=== PATIENT | female | born 1985 | race African-American/Black ===

== ENCOUNTER 2017-09-06 10:26 | Emergency (ER) | payer MEDICAID ==
[~2017-09-06] VITALS: Ht 165.1 cm; Wt 74.8 kg
[~2017-09-06 10:26] MED LIST: IBUPROFEN600 MG ORAL; IMITREX50 MG ORAL; ZOFRAN ODT4 MG ORAL
[2017-09-06 10:39] VITALS: BP 165/107
[2017-09-06] MEDS ORDERED: NKM (10:39)
[2017-09-06] MEDS ORDERED: Haloperidol 5mg/ml Inj IM ONE (11:30)
[2017-09-06 12:02] LABS: ANION GAP 14 mmol/L (5-15); CALCIUM 9.5 MG/DL (8.5-10.1); CARBON DIOXIDE 24 MMOL/L (21-32); CHLORIDE 100 MMOL/L (98-107); CREATININE 0.7 MG/DL (0.55-1.30); GLOMERULAR FILTRATION RATE > 60 mL/min (>60); INR 1.1 (0.9-1.1); MEAN CORPUSCULAR HEMOGLOBIN 32.6 PG (27.0-31.0); MEAN CORPUSCULAR HGB CONC 34.8 G/DL (32.0-36.0); MEAN CORPUSCULAR VOLUME 94 FL (80-99); MEAN PLATELET VOLUME 6.3 FL (6.5-10.1); PLATELET COUNT 330 K/UL (150-450); POTASSIUM 2.9 MMOL/L (3.5-5.1); PROTHROMBIN TIME 11.6 SEC (9.30-11.50); RED BLOOD COUNT 4.48 M/UL (4.20-5.40); RED CELL DISTRIBUTION WIDTH 11.1 % (11.6-14.8); SODIUM 138 MMOL/L (136-145); WHITE BLOOD COUNT 10.9 K/UL (4.8-10.8)
[2017-09-06 12:10] LABS: ALANINE AMINOTRANSFERASE 20 U/L (12-78); ALBUMIN/GLOBULIN RATIO 1.1 (1.0-2.7); APPEARANCE,URINE SLIGHTLY CLOUDY; ASPARTATE AMINO TRANSFERASE 17 U/L (15-37); KETONES,URINE 4+ (NEGATIVE); LEUKOCYTE ESTERASE ,URINE 2+ (NEGATIVE); LIPASE 122 U/L (73-393); NITRITE,URINE NEGATIVE (NEGATIVE); PH,URINE 6 (4.5-8.0); PROTEIN,URINE 2+ (NEGATIVE); TOTAL PROTEIN 8.6 G/DL (6.4-8.2); UROBILINOGEN,URINE NORMAL MG/DL (0.0-1.0)
[2017-09-06 12:55] LABS: BACTERIA,URINE FEW /HPF; RBC,URINE TNTC /HPF (0 - 2); SQUAMOUS EPITHELIAL CELL,UR MANY /LPF (NONE/OCC)
[2017-09-06 12:56] LABS: MUCUS,URINE MANY /LPF (NONE/OCC)
[2017-09-06 13:00] LABS: BAND NEUTROPHILS % (MANUAL) 0 % (0-8); BASOPHILS % (MANUAL) 0 % (0-2); EOSINOPHILS % (MANUAL) 0 % (0-3); LYMPHOCYTES % (MANUAL) 6 % (20-45); NEUTROPHILS % (MANUAL) 89 % (45-75); PLATELET ESTIMATE ADEQUATE; PLATELET MORPHOLOGY NORMAL; TOTAL CELLS COUNTED 100
[2017-09-06] MEDS ORDERED: cefTRIAXone 1 GM in NS 55 ML IVPB ONE (13:00)
[2017-09-06] MEDS ORDERED: ZOFRAN4 M3 ORAL (13:23)
[2017-09-06 14:01] VITALS: BP 119/67
[2017-09-06 14:37] VITALS: BP 119/67
--- NOTE | 2017-09-06 19:27 | Emergency Room Report ---
History of Present Illness General Chief Complaint: Vomiting Source: Patient Present Illness HPI Patient 31-year-old female presented after increased epigastric pain and vomiting. Patient gradual onset of symptoms. Patient had prior history of gastritis. She reports smoking marijuana earlier in the day. This reportedly helped pain. The patient having crampy pain. Associated with some burning sensation epigastric area. Allergies: Uncoded Allergies: CHOCOLATE (Allergy, Unknown, 09/06/17) Patient History Past Medical History: see triage record Last Menstrual Period: on period Reviewed Nursing Documentation: PMH: Agreed, PSxH: Agreed Nursing Documentation-PMH Past Medical History: No History, Except For Hx Gastrointestinal Problems: Yes - IBS Review of Systems All Other Systems: negative except mentioned in HPI Physical Exam Vital Signs Date Time Temp Pulse Resp B/P (MAP) Pulse Ox O2 Delivery O2 Flow Rate FiO2 09/06/17 10:31 98.2 105 18 152/97 99 Room Air Sp02 EP Interpretation: reviewed, normal General Appearance: normal inspection, well appearing, no apparent distress, alert, GCS 15 Head: atraumatic ENT: normal ENT inspection, hearing grossly normal, normal voice Neck: normal inspection, full range of motion, supple, no bony tend Respiratory: normal inspection, lungs clear, normal breath sounds, no respiratory distress, no retraction, no wheezing Cardiovascular #1: regular rate, rhythm, no edema Gastrointestinal: normal inspection, normal bowel sounds, non tender, soft, no guarding, no hernia Genitourinary: no CVA tenderness Musculoskeletal: normal inspection, back normal, normal range of motion Neurologic: normal inspection, alert, responsive, speech normal Psychiatric: normal inspection, judgement/insight normal, mood/affect normal Skin: normal inspection, normal color, no rash Medical Decision Making Diagnostic Impression: Primary Impression: Vomiting ER Course Patient presented for abdominal pain. Differential diagnoses included ischemic bowel, appendicitis, perforated viscus, abdominal aortic aneurysm, inferior myocardial infarction, viral gastroenteritis Because of complexity of patient's case laboratory testing and imaging studies were ordered. Laboratory testing was notable for hypokalemia. Patient was given oral potassium with improvement. She is given IM Haldol for nausea. The patient subsequently able to tolerate oral fluids.The patient is advised to follow up with primary care doctor in 1-2 days. Patient is advised to return if any worsening condition or if any changes in status that are concerning. Labs Test 09/06/17 11:35 White Blood Count 10.9 K/UL (4.8-10.8) Red Blood Count 4.48 M/UL (4.20-5.40) Hemoglobin 14.6 G/DL (12.0-16.0) Hematocrit 41.9 % (37.0-47.0) Mean Corpuscular Volume 94 FL (80-99) Mean Corpuscular Hemoglobin 32.6 PG (27.0-31.0) Mean Corpuscular Hemoglobin Concent 34.8 G/DL (32.0-36.0) Red Cell Distribution Width 11.1 % (11.6-14.8) Platelet Count 330 K/UL (150-450) Mean Platelet Volume 6.3 FL (6.5-10.1) Neutrophils (%) (Auto) % (45.0-75.0) Lymphocytes (%) (Auto) % (20.0-45.0) Monocytes (%) (Auto) % (1.0-10.0) Eosinophils (%) (Auto) % (0.0-3.0) Basophils (%) (Auto) % (0.0-2.0) Differential Total Cells Counted 100 Neutrophils % (Manual) 89 % (45-75) Lymphocytes % (Manual) 6 % (20-45) Monocytes % (Manual) 5 % (1-10) Eosinophils % (Manual) 0 % (0-3) Basophils % (Manual) 0 % (0-2) Band Neutrophils 0 % (0-8) Platelet Estimate Adequate Platelet Morphology Normal Red Blood Cell Morphology Normal Prothrombin Time 11.6 SEC (9.30-11.50) Prothromb Time International Ratio 1.1 (0.9-1.1) Activated Partial Thromboplast Time 28 SEC (23-33) Urine Color Yellow Urine Appearance Slightly cloudy Urine pH 6 (4.5-8.0) Urine Specific [place] 1.025 (1.005-1.035) Urine Protein 2+ (NEGATIVE) Urine Glucose (UA) Negative (NEGATIVE) Urine Ketones 4+ (NEGATIVE) Urine Occult Blood 5+ (NEGATIVE) Urine Nitrite Negative (NEGATIVE) Urine Bilirubin Negative (NEGATIVE) Urine Urobilinogen Normal MG/DL (0.0-1.0) Urine Leukocyte Esterase 2+ (NEGATIVE) Urine RBC Tntc /HPF (0 - 2) Urine WBC 5-10 /HPF (0 - 2) Urine Squamous Epithelial Cells Many /LPF (NONE/OCC) Urine Bacteria Few /HPF (NONE) Urine Mucus Many /LPF (NONE/OCC) Sodium Level 138 MMOL/L (136-145) Potassium Level 2.9 MMOL/L (3.5-5.1) Chloride Level 100 MMOL/L (98-107) Carbon Dioxide Level 24 MMOL/L (21-32) Anion Gap 14 mmol/L (5-15) Blood Urea Nitrogen 8 mg/dL (7-18) Creatinine 0.7 MG/DL (0.55-1.30) Estimat Glomerular Filtration Rate > 60 mL/min (>60) Glucose Level 116 MG/DL (74-106) Calcium Level 9.5 MG/DL (8.5-10.1) Total Bilirubin 0.6 MG/DL (0.2-1.0) Aspartate Amino Transf (AST/SGOT) 17 U/L (15-37) Alanine Aminotransferase (ALT/SGPT) 20 U/L (12-78) Alkaline Phosphatase 84 U/L (46-116) Troponin I 0.004 ng/mL (0.000-0.056) Total Protein 8.6 G/DL (6.4-8.2) Albumin 4.6 G/DL (3.4-5.0) Globulin 4.0 g/dL Albumin/Globulin Ratio 1.1 (1.0-2.7) Lipase 122 U/L (73-393) Last Vital Signs Date Time Temp Pulse Resp B/P (MAP) Pulse Ox O2 Delivery O2 Flow Rate FiO2 09/06/17 14:37 98.9 85 16 119/67 100 Room Air Status: improved Disposition: HOME, SELF-CARE Condition: Stable Scripts Ondansetron* (ZOFRAN*) 4 Mg Tablet 4 MG ORAL Q6H Y for Nausea & Vomiting, #20 TAB Prov: Rodrigo Abraham 09/06/17 Referrals: [facility]ERR[facility] (PCP) Patient Instructions: Nausea and Vomiting, Adult Rodrigo Abraham Sep 06, 2017 19:27
== END 2017-09-06 14:37 | disposition home or self-care (01) ==
LOC: EMR 11:00
DX: R11.10 Vomiting, unspecified (principal); R10.13 Epigastric pain; Z87.19 Personal history of other diseases of the digestive system
CPT/HCPCS: 36415; 80053; 81003; 83690; 84484; 85007; 85025; 85610; 85730; 96361; 96372; 96374; 99284; J0696; J1630; J8499

== ENCOUNTER 2017-09-08 16:46 | Emergency (ER) | payer MEDICAID ==
[~2017-09-08] VITALS: Ht 165.1 cm; Wt 74.8 kg
[~2017-09-08 16:46] MED LIST changes: +NKM; +ZOFRAN4 M3 ORAL
--- NOTE | 2017-09-08 17:27 | Emergency Room Report ---
History of Present Illness General Chief Complaint: Vomiting Source: Patient Present Illness HPI 31-year-old female presents to the emergency department complaining of nausea, vomiting, subjective fevers and chills with generalized abdominal pain x3 days. Patient was evaluated here in the emergency department 3 days ago and was discharged with oral antiemetic medication. Patient states that she is unable to tolerate fluids or food that the medication is not working for her. Patient denies significant changes in her symptoms. She denies , she states she has not had any more additional marijuana use since her previous visit to the ED. patient denies constipation or diarrhea she reports past medical history of IBS. Denies recent travel or ill contacts. Denies blood in the vomit or stool she denies black tarry stools. Denies dysuria, hematuria, or urinary frequency. Denies CP, Palpitations, LOC, AMS, dizziness, Changes in Vision, Sensation, paresthesias, or a sudden severe headache. Allergies: Uncoded Allergies: CHOCOLATE (Allergy, Unknown, 09/06/17) Patient History Past Medical History: see triage record Past Surgical History: none Pertinent Family History: none Last Menstrual Period: Current Now: No Reviewed Nursing Documentation: PMH: Agreed, PSxH: Agreed Nursing Documentation-PMH Hx Gastrointestinal Problems: Yes - IBS Review of Systems All Other Systems: negative except mentioned in HPI Physical Exam Vital Signs Date Time Temp Pulse Resp B/P (MAP) Pulse Ox O2 Delivery O2 Flow Rate FiO2 09/08/17 16:54 98.1 107 21 99/68 99 Room Air Sp02 EP Interpretation: reviewed, normal General Appearance: no apparent distress, alert, GCS 15, non-toxic Head: normocephalic, atraumatic Eyes: bilateral eye normal inspection, bilateral eye PERRL ENT: hearing grossly normal, normal voice Neck: full range of motion, supple/symm/no masses Respiratory: lungs clear, normal breath sounds, speaking full sentences Cardiovascular #1: regular rate, rhythm Gastrointestinal: normal bowel sounds, non tender, soft, non-distended, no guarding, no rebound Musculoskeletal: back normal, gait/station normal, normal range of motion, non- tender Neurologic: alert, oriented x3, responsive, motor strength/tone normal, sensory intact, speech normal Skin: normal color, no rash, warm/dry, well hydrated Lymphatic: no adenopathy Medical Decision Making PA Attestation Dr. gonsalves is my supervising Physician whom patient management has been discussed with. Diagnostic Impression: Primary Impression: Vomiting Qualified Codes: R11.2 - Nausea with vomiting, unspecified Additional Impressions: Trichomonal infection Hypokalemia, gastrointestinal losses Mild dehydration ER Course 31-year-old female presents to the emergency department complaining of nausea, vomiting, subjective fevers and chills with generalized abdominal pain x3 days. Patient was evaluated here in the emergency department 3 days ago and was discharged with oral antiemetic medication. Patient states that she is unable to tolerate fluids or food that the medication is not working for her. Patient denies significant changes in her symptoms. She denies , she states she has not had any more additional marijuana use since her previous visit to the ED. patient denies constipation or diarrhea she reports past medical history of IBS. Denies recent travel or ill contacts. Denies blood in the vomit or stool she denies black tarry stools. Denies dysuria, hematuria, or urinary frequency. Denies CP, Palpitations, LOC, AMS, dizziness, Changes in Vision, Sensation, paresthesias, or a sudden severe headache. Ddx considered but are not limited to GE, colitis, acute appendicitis, SBO, Cyclical Vomiting secondary to THC, * Vital signs: pt. is afebrile, H&PE are most consistent with Nausea and vomiting not responding to previously prescribed anti-emetics. ORDERS: -None required at this time, the dx is clinical. -Urine Hcg: negative - UA: Positive for trichomonas, some bacteria present. -CMP: low potassium of 3.0 -CBC: unremarkable ED INTERVENTIONS: -1000 NS iv hydration, -IM Haldol -KCL PO -Zantac PO -Mylanta PO - Pt. tolerate oral fluid challenge. DISCHARGE: At this time pt. is stable for d/c to home. Will provide printed patient care instructions, and any necessary prescriptions. Care plan and follow up instructions have been discussed with the patient prior to discharge. Labs Test 09/08/17 17:15 09/08/17 18:00 09/08/17 18:15 Urine Color Yellow Urine Appearance Clear Urine pH 7 (4.5-8.0) Urine Specific [place] 1.015 (1.005-1.035) Urine Protein 2+ (NEGATIVE) Urine Glucose (UA) Negative (NEGATIVE) Urine Ketones 2+ (NEGATIVE) Urine Occult Blood 2+ (NEGATIVE) Urine Nitrite Negative (NEGATIVE) Urine Bilirubin Negative (NEGATIVE) Urine Urobilinogen 4 MG/DL (0.0-1.0) Urine Leukocyte Esterase 1+ (NEGATIVE) Urine RBC 2-4 /HPF (0 - 2) Urine WBC 5-10 /HPF (0 - 2) Urine Squamous Epithelial Cells Moderate /LPF (NONE/OCC) Urine Bacteria Occasional /HPF (NONE) Urine Trichomonas Occasional /HPF (NONE) Urine HCG, Qualitative Negative Sodium Level 138 MMOL/L (136-145) Potassium Level 3.0 MMOL/L (3.5-5.1) Chloride Level 100 MMOL/L (98-107) Carbon Dioxide Level 29 MMOL/L (21-32) Anion Gap 9 mmol/L (5-15) Blood Urea Nitrogen 9 mg/dL (7-18) Creatinine 0.8 MG/DL (0.55-1.30) Estimat Glomerular Filtration Rate > 60 mL/min (>60) Glucose Level 103 MG/DL (74-106) Calcium Level 9.0 MG/DL (8.5-10.1) Total Bilirubin 0.8 MG/DL (0.2-1.0) Aspartate Amino Transf (AST/SGOT) 18 U/L (15-37) Alanine Aminotransferase (ALT/SGPT) 19 U/L (12-78) Alkaline Phosphatase 77 U/L (46-116) Total Protein 7.7 G/DL (6.4-8.2) Albumin 4.0 G/DL (3.4-5.0) Globulin 3.7 g/dL Albumin/Globulin Ratio 1.1 (1.0-2.7) White Blood Count 7.3 K/UL (4.8-10.8) Red Blood Count 4.76 M/UL (4.20-5.40) Hemoglobin 15.2 G/DL (12.0-16.0) Hematocrit 43.5 % (37.0-47.0) Mean Corpuscular Volume 91 FL (80-99) Mean Corpuscular Hemoglobin 31.8 PG (27.0-31.0) Mean Corpuscular Hemoglobin Concent 34.9 G/DL (32.0-36.0) Red Cell Distribution Width 10.6 % (11.6-14.8) Platelet Count 317 K/UL (150-450) Mean Platelet Volume 6.1 FL (6.5-10.1) Neutrophils (%) (Auto) 77.9 % (45.0-75.0) Lymphocytes (%) (Auto) 13.1 % (20.0-45.0) Monocytes (%) (Auto) 8.2 % (1.0-10.0) Eosinophils (%) (Auto) 0.2 % (0.0-3.0) Basophils (%) (Auto) 0.6 % (0.0-2.0) Last Vital Signs Date Time Temp Pulse Resp B/P (MAP) Pulse Ox O2 Delivery O2 Flow Rate FiO2 09/08/17 16:54 98.1 107 21 99/68 99 Room Air Disposition: HOME, SELF-CARE Condition: Stable Scripts Metronidazole* (FLAGYL*) 500 Mg Tablet 500 MG ORAL BID for 7 Days, #14 TAB 0 Refills Prov: Simran Carbajal 09/08/17 Prochlorperazine (COMPAZINE*) 10 Mg Tablet 10 MG ORAL Q6H Y for Nausea & Vomiting, #15 TAB Prov: Simran Carbajal 09/08/17 Patient Instructions: Nausea and Vomiting, Adult Additional Instructions: Take medications as directed. Follow up with a Primary Care Provider in 3-5 days, even if your symptoms have resolved. --Please review list of primary care clinics, if you do not already have a primary care provider Return sooner to ED if new symptoms occur, or current symptoms become worse. - Please note that this Emergency Department Report was dictated using [employer] technology software, occasionally this can lead to erroneous entry secondary to interpretation by the dictation equipment. Simran Carbajal Sep 08, 2017 17:27
[2017-09-08] MEDS ORDERED: Haloperidol 5mg/ml Inj IM ONE (17:30)
[2017-09-08 17:39] LABS: APPEARANCE,URINE CLEAR; KETONES,URINE 2+ (NEGATIVE); LEUKOCYTE ESTERASE ,URINE 1+ (NEGATIVE); NITRITE,URINE NEGATIVE (NEGATIVE); PH,URINE 7 (4.5-8.0); PROTEIN,URINE 2+ (NEGATIVE); UROBILINOGEN,URINE 4 MG/DL (0.0-1.0)
[2017-09-08 17:54] LABS: BACTERIA,URINE OCCASIONAL /HPF; SQUAMOUS EPITHELIAL CELL,UR MODERATE /LPF (NONE/OCC); TRICHOMONAS,URINE OCCASIONAL /HPF
[2017-09-08 18:10] VITALS: BP 101/70
[2017-09-08 18:29] LABS: ALANINE AMINOTRANSFERASE 19 U/L (12-78); ALBUMIN/GLOBULIN RATIO 1.1 (1.0-2.7); ANION GAP 9 mmol/L (5-15); ASPARTATE AMINO TRANSFERASE 18 U/L (15-37); CARBON DIOXIDE 29 MMOL/L (21-32); CHLORIDE 100 MMOL/L (98-107); CREATININE 0.8 MG/DL (0.55-1.30); GLOMERULAR FILTRATION RATE > 60 mL/min (>60); SODIUM 138 MMOL/L (136-145); TOTAL PROTEIN 7.7 G/DL (6.4-8.2)
[2017-09-08 18:30] LABS: BASOPHILS % (AUTO) 0.6 % (0.0-2.0); EOSINOPHILS % (AUTO) 0.2 % (0.0-3.0); LYMPHOCYTES % (AUTO) 13.1 % (20.0-45.0); MEAN CORPUSCULAR HEMOGLOBIN 31.8 PG (27.0-31.0); MEAN CORPUSCULAR HGB CONC 34.9 G/DL (32.0-36.0); MEAN CORPUSCULAR VOLUME 91 FL (80-99); MEAN PLATELET VOLUME 6.1 FL (6.5-10.1); MONOCYTES % (AUTO) 8.2 % (1.0-10.0); NEUTROPHILS % (AUTO) 77.9 % (45.0-75.0); PLATELET COUNT 317 K/UL (150-450); RED BLOOD COUNT 4.76 M/UL (4.20-5.40); RED CELL DISTRIBUTION WIDTH 10.6 % (11.6-14.8); WHITE BLOOD COUNT 7.3 K/UL (4.8-10.8)
[2017-09-08] MEDS ORDERED: COMPAZINE10 MG ORAL (18:58)
[2017-09-08] MEDS ORDERED: METRONIDAZOLE500 MG ORAL (19:08)
[2017-09-08 19:35] VITALS: BP 135/90
== END 2017-09-08 19:40 | disposition home or self-care (01) ==
LOC: EMR 17:07
DX: R11.2 Nausea with vomiting, unspecified (principal); A59.9 Trichomoniasis, unspecified; E87.6 Hypokalemia; E86.0 Dehydration; Z87.19 Personal history of other diseases of the digestive system
CPT/HCPCS: 36415; 80053; 81003; 81025; 85025; 96361; 96372; 96374; 99284; J1630; J8499

== ENCOUNTER 2019-09-27 20:28 | Emergency (ER) | payer MEDICAID ==
[~2019-09-27] VITALS: Ht 165.1 cm; Wt 68.0 kg
[~2019-09-27 20:28] MED LIST changes: +COMPAZINE10 MG ORAL; +METRONIDAZOLE500 MG ORAL
[2019-09-27 20:40] VITALS: BP 124/80
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
[2019-09-27 20:55] VITALS: BP 132/85
== END 2019-09-27 21:05 | disposition home or self-care (01) ==
LOC: EMR 21:05
DX: S61.012A Laceration without foreign body of left thumb without damage to nail, initial encounter (principal); Z48.02 Encounter for removal of sutures; Z91.018 Allergy to other foods; W45.8XXA Other foreign body or object entering through skin, initial encounter; Y92.9 Unspecified place or not applicable
CPT/HCPCS: 99281

== ENCOUNTER 2019-10-20 19:10 | Emergency (ER) | payer MEDICAID ==
[~2019-10-20] VITALS: Ht 165.1 cm; Wt 68.0 kg
--- NOTE | 2019-10-20 19:16 | NUR ---
ED Nurse Note: PT walked into ED for C/O sore throat for 7 days. Pt stated she had a fever last night and also has productive cough.
[2019-10-20 19:18] VITALS: BP 120/76
--- NOTE | 2019-10-20 19:23 | Emergency Room Report ---
History of Present Illness General Chief Complaint: Sore Throat Source: Patient Present Illness HPI 33-year-old female presents to the emergency department complaining of [address] ST with cough and wheezing x 1 week. Pt. reports body aches and fatigue. Denies LEAL , neck pain or stiffness. She denies recent travel she reports multiple ill contacts at work and states that she just finished getting over viral symptoms 1 week ago. She reports that her sore throat today is actually improved from yesterday. Pain is exacerbated upon swallowing. She denies changes in voice. She denies hemoptysis or productive cough. Allergies: Uncoded Allergies: CHOCOLATE (Allergy, Unknown, 09/06/17) Patient History Past Medical History: see triage record Past Surgical History: none Pertinent Family History: none Last Menstrual Period: 10/03/19 Now: No Immunizations: UTD Reviewed Nursing Documentation: PMH: Agreed; PSxH: Agreed Nursing Documentation-PM Past Medical History: No Stated History Hx Gastrointestinal Problems: Yes - IBS Review of Systems All Other Systems: negative except mentioned in HPI Physical Exam Vital Signs Date Time Temp Pulse Resp B/P (MAP) Pulse Ox O2 Delivery O2 Flow Rate FiO2 10/20/19 19:12 98.2 85 19 118/76 (90) 97 Room Air Sp02 EP Interpretation: reviewed, normal General Appearance: no apparent distress, alert, GCS 15, non-toxic Head: normocephalic, atraumatic Eyes: bilateral eye normal inspection, bilateral eye PERRL ENT: hearing grossly normal, normal voice, TMs + canals normal, uvula midline, moist mucus membranes, pharyngeal erythema, other - no exudates or swelling of the tonsils. Neck: full range of motion, no meningismus Respiratory: chest non-tender, lungs clear, normal breath sounds, speaking full sentences, wheezing - scant expiratory wheezes Cardiovascular #1: regular rate, rhythm Musculoskeletal: normal range of motion, gait/station normal, non-tender Neurologic: alert, motor strength/tone normal, oriented x3, sensory intact, responsive, speech normal Psychiatric: judgement/insight normal Skin: no rash Lymphatic: no adenopathy Medical Decision Making PA Attestation Dr. Pineda Is my supervising Physician whom patient management has been discussed with. Diagnostic Impression: Primary Impression: Acute viral bronchitis ER Course 33-year-old female presents to the emergency department complaining of 05/24 with cough and wheezing x 1 week. Pt. reports body aches and fatigue. Denies LEAL , neck pain or stiffness. She denies recent travel she reports multiple ill contacts at work and states that she just finished getting over viral symptoms 1 week ago. She reports that her sore throat today is actually improved from yesterday. Pain is exacerbated upon swallowing. She denies changes in voice. She denies hemoptysis or productive cough. Ddx considered but are not limited to URI, pneumonia, PE, strep pharyngitis, meningitis. Vital signs: Pt.is afebrile VS are WNL H&PE are most consistent with bronchitis ORDERS: none required at this time, the diagnosis is clinical ED INTERVENTIONS: None required at this time. DISCHARGE: At this time pt. is stable for d/c to home. Will provide printed patient care instructions, and any necessary prescriptions. Care plan and follow up instructions have been discussed with the patient prior to discharge. Last Vital Signs Date Time Temp Pulse Resp B/P (MAP) Pulse Ox O2 Delivery O2 Flow Rate FiO2 10/20/19 19:18 98.2 88 19 120/76 97 Room Air Disposition: HOME, SELF-CARE Condition: Stable Scripts Naproxen* (NAPROXEN*) 500 Mg Tablet 500 MG ORAL BID, #14 TAB Prov: Simran Carbajal 10/20/19 Albuterol Sulfate* (ALBUTEROL SULFATE MDI*) 8.5 Gm Hfa.aer.ad 2 PUFF INH Q3H, #1 INH 0 Refills Prov: Simran Carbajal 10/20/19 Codeine/Promethazine Hcl* (PROMETHAZINE-CODEINE SYRUP*) 118 Ml Syrup 5 ML ORAL Q6H PRN for For Cough, #120 ML 0 Refills Prov: Simran Carbajal 10/20/19 Patient Instructions: Acute Bronchitis, [id number], Sore Throat Additional Instructions: Take medications as directed. Follow up with a Primary Care Provider in 3-5 days, even if your symptoms have resolved. --Please review list of primary care clinics, if you do not already have a primary care provider Return sooner to ED if new symptoms occur, or current symptoms become worse. Do not drink alcohol, drive, or operate heavy machinery while taking Cough Syrup as this may cause drowsiness. - Please note that this Emergency Department Report was dictated using [employer] technology software, occasionally this can lead to erroneous entry secondary to interpretation by the dictation equipment. Simran Carbajal Oct 20, 2019 19:23
[2019-10-20] MEDS ORDERED: NAPROXEN500 M2 ORAL (19:40)
[2019-10-20] MEDS ORDERED: ALBUTEROL SULF8.5 GM INH (19:40)
[2019-10-20] MEDS ORDERED: PROMETHAZINE-C118 M1 ORAL (19:40)
[2019-10-20 19:43] VITALS: BP 118/80
--- NOTE | 2019-10-20 19:43 | NUR ---
ER DISCHARGE NOTE: Patient is cleared to be discharged per ERMD, pt is aox4, on room air, with stable vital signs. pt was given dc and prescription instructions, pt was able to verbalize understanding, pt id band removed without complications. pt is able to ambulate with steady gait. pt took all belongings.
== END 2019-10-20 19:43 | disposition home or self-care (01) ==
LOC: EMR 19:43
DX: J20.8 Acute bronchitis due to other specified organisms (principal); K58.9 Irritable bowel syndrome, unspecified; Z91.018 Allergy to other foods
CPT/HCPCS: 99282

== ENCOUNTER 2019-12-19 14:11 | Emergency (ER) | payer MEDICAID ==
[~2019-12-19] VITALS: Ht 162.6 cm; Wt 68.0 kg
[~2019-12-19 14:11] MED LIST changes: +ALBUTEROL SULF8.5 GM INH; +NAPROXEN500 M2 ORAL; +PROMETHAZINE-C118 M1 ORAL
--- NOTE | 2019-12-19 14:27 | NUR ---
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 DENIES KO AND ABLE TO MOVE HER NECK FULL ROM. BREATHING NORMAL/EVEN/UNLABORED. SKIN WARM/DRY/INTACT. PT IS LYING FLAT IN SUPINE POSITION. NAD NOTED.
[2019-12-19 14:32] VITALS: BP 126/84
--- NOTE | 2019-12-19 15:03 | NUR ---
ED Nurse Note: PT REFSUED URINE TEST. PT SIGNED TEST WAIVER FORM TO GET EXAM FOR CT SCAN.
--- NOTE | 2019-12-19 15:16 | Emergency Room Report ---
History of Present Illness General Chief Complaint: Neck Injury Source: Patient Present Illness HPI 33-year-old female presents to the emergency department complaining of 7 out of 10 severity headache with pain and tenderness to the left side of her head and neck since 11 PM last night. Patient reports status post head injury and describes that she was playing football and fell to the ground backwards after catching the ball and she struck her head. Patient denies loss of consciousness but she does report feeling a little dizzy when she first got up which resolved spontaneously. She has a LEAL and tenderness to the left posterior scalp, and left side of the neck with some midline. Pt. denies tightness. She reports pain is exacerbated with quick movement Patient states that today she is having difficulty concentrating and with word recall. Patient describes having a mental fog. and Photophobia. She denies nausea vomiting. She took Motrin last night which provided some relief. Denies numbness tingling or loss of sensation or gross motor movements of the extremities, incontinence of bowel or bladder. She denies changes in vision or hearing. Denies . Mother is bedside and agrees/endorses that yes the pt. has been acting very fatigued and slower than usual. Pt. denies and reports she is not sexually active with males. Allergies: Uncoded Allergies: CHOCOLATE (Allergy, Unknown, 09/06/17) Patient History Past Medical History: see triage record Past Surgical History: none Pertinent Family History: none Last Menstrual Period: 12/15/19 Now: No Reviewed Nursing Documentation: PMH: Agreed; PSxH: Agreed Nursing Documentation-PM Past Medical History: No Stated History Hx Gastrointestinal Problems: Yes - IBS Review of Systems All Other Systems: negative except mentioned in HPI Physical Exam Vital Signs Date Time Temp Pulse Resp B/P (MAP) Pulse Ox O2 Delivery O2 Flow Rate FiO2 12/19/19 14:18 98.2 76 15 126/84 (98) 98 Room Air Sp02 EP Interpretation: reviewed, normal General Appearance: no apparent distress, alert, GCS 15, non-toxic Head: normocephalic, other - TTP to the left occipital area, mild swelling noted no appreciable hematoma, no anderson signs or hemotympanum. Eyes: bilateral eye normal inspection, bilateral eye PERRL ENT: hearing grossly normal, normal voice, TMs + canals normal Neck: full range of motion, tender lateral - Left-sided tenderness with some mild midline tenderness as well. Full range of motion. No palpable step-offs. Respiratory: chest non-tender, lungs clear, normal breath sounds, speaking full sentences Cardiovascular #1: regular rate, rhythm Musculoskeletal: normal range of motion, gait/station normal, tender - Tenderness to the left trapezius and left paraspinal musculature as well as some midline cervical tenderness without palpable step-off. No spinous process tenderness to the thoracic or lumbar areas. No palpable step-offs or obvious deformities. Patient has full range of motion. Neurologic: alert, motor strength/tone normal, oriented x3, sensory intact, cerebellar normal, responsive, speech normal, grossly normal, no focal defects, other - normal finger to nose. word recall is two out of 3 Psychiatric: judgement/insight normal, mood/affect normal Skin: normal color, normal inspection Medical Decision Making PA Attestation Dr. Betancourt is my supervising Physician whom patient management has been discussed with. Diagnostic Impression: Primary Impression: Concussion syndrome Additional Impression: Strain of neck Qualified Codes: S16.1XXA - Strain of muscle, fascia and tendon at neck level , initial encounter ER Course 33-year-old female presents to the emergency department complaining of 7 out of 10 severity headache with pain and tenderness to the left side of her head and neck since 11 PM last night. Patient reports status post head injury and describes that she was playing football and fell to the ground backwards after catching the ball and she struck her head. Patient denies loss of consciousness but she does report feeling a little dizzy which resolved. Patient states that today she is having difficulty concentrating and with word recall. Patient describes having a mental fog. She denies nausea vomiting. She took Motrin last night which provided minimal relief. Denies numbness tingling or loss of sensation or gross motor movements of the extremities, incontinence of bowel or bladder. She denies changes in vision or hearing. Denies . Ddx considered but are not limited to Fracture, dislocation, contusion, concussion Sprain/Strain/Spasm, hematoma Vital signs: are WNL, pt. is afebrile H&PE are most consistent with contusion, no evidence of focal neurological deficit, no loss of consciousness. ORDERS: -Urine Hcg: negative -CT Head and C-spine without contrast: Both WNL- no fractures, dislocations or acute bleeds/intracranial processes. ED INTERVENTIONS: - Tylenol PO _ pt. sent home on mild concussion precautions, I emphasized the need to avoid any additional trauma to the head as well as resting at home including brain rest and limiting cell phone or bright screens usage until symptoms resolve. Patient is to follow-up with a primary care doctor or neurologist before return to play/football. - Pt. and responsible green party verbalize their understanding and agreement with proposed treatment plan. DISCHARGE: At this time pt. is stable for d/c to home. Will provide printed patient care instructions, and any necessary prescriptions. Care plan and follow up instructions have been discussed with the patient prior to discharge. CT/MRI/US Diagnostic Results CT/MRI/US Diagnostic Results #1: Imaging Test Ordered: CT Head noncon Impression " No acute bleed, mass or fractures." Per official radiology report- Please see report for specific details. CT/MRI/US Diagnostic Results #2: Imaging Test Ordered: CT C-Spine Impression " Negative no fractures no dislocations some chronic genetic anomalies." Per official radiology report- Please see report for specific details. Last Vital Signs Date Time Temp Pulse Resp B/P (MAP) Pulse Ox O2 Delivery O2 Flow Rate FiO2 12/19/19 14:32 98.2 74 15 126/84 98 Room Air Status: improved Disposition: HOME, SELF-CARE Condition: Stable Scripts Acetaminophen* (TYLENOL EXTRA STRENGTH*) 500 Mg Tablet 500 MG ORAL Q6H PRN for Mild Pain/Temp > 100.5, #30 TAB 0 Refills Prov: Simran Carbajal 12/19/19 Referrals: [facility]ERR[facility] (PCP) Departure Forms: Return to School Return to School On: Dec 20, 2019 School Release Restrictions: No Sports or PE Other School Release Restrictions: 1-2 weeks no contact sports.Concussion precautions. Return to Full Activity: Dec 31, 2019 Patient Instructions: Concussion, Adult Additional Instructions: Avoid any additional trauma to your head, spent several days with having mental rest and avoid bright lights or bright screens. No football practice for 1 to 2 [id number] for return to practice is preferred. Take medications as directed. Follow up with a Primary Care Provider in 3-5 days For a referral to have NEUROLOGIST Evaluation, even if your symptoms have resolved. Return sooner to ED if new symptoms occur, or current symptoms become worse. - Please note that this Emergency Department Report was dictated using [employer] accountant technology software, occasionally this can lead to erroneous entry secondary to interpretation by the dictation equipment. Simran Carbajal Dec 19, 2019 15:16
--- NOTE | 2019-12-19 16:10 | Diagnostic Imaging Report ---
Indication: Neck pain, headache since yesterday after a fall Technique: Spiral acquisitions obtained through the cervical spine. No IV contrast utilized. Multiplanar reconstructions were generated. Total dose length product 166 mGycm. CTDIvol(s) 7 mGy. Dose reduction achieved using automated exposure control. Comparison: none Findings: Bony alignment is normal. Vertebral body heights are preserved. The disc spaces are preserved. No prevertebral soft tissue swelling. There is absence of the anterior aspects of the posterior arches of C1 bilaterally. This is symmetric. No acute fractures. No dislocations. Vertebral body heights are preserved. There is mild narrowing of the right C6-7 neural foramen, due to very mild facet arthrosis at this level. At the remaining levels, no significant disc bulge or protrusion, spinal stenosis, or neural foraminal stenosis. 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
--- NOTE | 2019-12-19 16:13 | Diagnostic Imaging Report ---
Indications: Neck pain with headache since yesterday after a fall Technique: Spiral acquisitions obtained through the brain. Angled axial and coronal 5 x 5 mm slices were reconstructed. Total dose length product 1035 mGycm. CTDI vol(s) 53 mGy. Dose reduction achieved using automated exposure control Comparison: None. Findings: No acute intracranial hemorrhage or edema. No mass effect nor midline shift. Normal banegas-white differentiation. Normal size ventricles and extra-axial CSF spaces. Intact calvarium. Visualized orbits and sinuses are unremarkable. Bilateral C1 arch defects described on simultaneous neck CT also noted Impression: Negative The CT scanner at [facility] is accredited by the [employer] and the scans are performed using protocols designed to limit radiation exposure to as low as reasonably achievable to attain images of sufficient resolution adequate for diagnostic evaluation.
[2019-12-19] MEDS ORDERED: TYLENOL EXTRA500 MG ORAL (16:28)
[2019-12-19 16:36] VITALS: BP 116/71
--- NOTE | 2019-12-19 16:37 | NUR ---
ED Nurse Note: Pt cleared by health care Provider for discharge. DC instructions/prescription was given and explained to pt and verbalized understanding of teachings. All medical deviecs such as ID band removed. Pt is AAO x4, ambulatory and left with all personal belongings.
== END 2019-12-19 16:37 | disposition home or self-care (01) ==
LOC: EMR 15:06
DX: S06.0X0A Concussion without loss of consciousness, initial encounter (principal); S16.1XXA Strain of muscle, fascia and tendon at neck level, initial encounter; W19.XXXA Unspecified fall, initial encounter; Y93.61 Activity, american tackle football; Y92.9 Unspecified place or not applicable; Z91.018 Allergy to other foods
CPT/HCPCS: 70450; 72125; Z7502; 99284